=== PATIENT | male | born 1980 | race Caucasian/White ===

== ENCOUNTER 2022-10-24 12:58 | Inpatient (IN) ==
--- NOTE | 2022-10-24 13:24 | Emergency Department Note ---
Impression & Plan Depression with suicidal ideation ED Provider Note NAME: EMMANUEL PARIKH AGE: 42 SEX: M : 1980 ARRIVES VIA: Walk-In INFORMANT: Patient, ED PROVIDER(S): Junior Woods DO CHIEF COMPLAINT: Mental health evaluation HPI: The patient is a 42-year-old male who presented to the emergency department for an evaluation of mental health issues. The patient has a history of mental health problems in the past. The patient started noticing problems with depression as well as suicidal ideation over the last 2 weeks. He had planned to either cut his wrists or hang himself. The patient had a similar episode sometime ago. He was admitted to the [facility] in [place] approximately 9 months ago. He states has been compliant with his outpatient medications although he feels they are not helping him. He denies having any recent alcohol or drug use. He denies having any trauma. He denies having any fever or headache. ROS: See above HPI for pertinent positives & negatives. A total of 10 systems reviewed and were otherwise negative. PAST MEDICAL HISTORY: See Below PAST SURGICAL HISTORY: See Below FAMILY HISTORY: See Below SOCIAL HISTORY: See Below HOME MEDICATIONS: See Below ALLERGIES: See Below VITALS: See Below PHYSICAL EXAMINATION: GENERAL: Patient is awake alert in no acute distress patient is resting comfortably and showing no signs of anxiety EYES: The conjunctivae are clear. The pupils are round and reactive. EARS, NOSE, MOUTH AND THROAT: The nose is without any evidence of any deformity. Mucous membranes are moist. Tongue is midline. NECK: The neck is nontender and supple. RESPIRATORY: Normal respiratory effort is noted there is no evidence of wheezing rhonchi or rales CARDIOVASCULAR: Regular rate and rhythm noted there no murmurs rubs or gallops normal S1 normal S2. GASTROINTESTINAL: The abdomen is soft. Abdomen is nontender. MUSCULOSKELETAL/EXTREMITIES: There is no evidence of gross deformity full range of motion is noted in the hips and shoulders. SKIN: There is no obvious evidence of any rash. There are no petechiae, pallor or cyanosis noted. NEUROLOGIC: Patient is awake alert and oriented x3. Strength was symmetric. Gait was steady. PSYCH: The patient makes good eye contact mostly evaluation. His affect is flat. The patient is currently admitting to suicidal ideation with a plan to hang himself. MEDICAL DECISION MAKING: The patient is a 42-year-old male who presented to the emergency department for mental health evaluation. The patient has a history of schizophrenia. He also has a history of bipolar. The patient has been compliant with his outpatient medications although he does not feel his medications are helping him. He presented to the emergency department for an evaluation. The patient was medically cleared in the emergency department. He was then evaluated by the mental health pillowcase maker. He was felt to be a good candidate for inpatient management. A referral was made to [facility]. The patient was ultimately excepted to [facility] for inpatient management. 201 was signed by myself. Triage Nursing notes reviewed. Prior medical records reviewed Vital Signs: reviewed and remarkable for no significant abnormalities Differential diagnosis: Mood disorder, infection, hypoglycemia, electrolyte abnormalities, cardiac sources, intracerebral event, toxicologic, trauma, neurologic, as well as other pathologies. ER treatment provided: See below Diagnostics interpreted by me: ECG: none Cardiac Monitoring: An order was placed for continuous cardiac monitoring. The monitor shows a rate of with rhythm. Laboratory studies: As stated above and show below. Imaging studies: See below. Radiographic imaging was reviewed by myself Consultation(s): The case was discussed with the emergency department mental health pillowcase maker. Past Med/Surg History Medical History Anxiety Bipolar 1 disorder History of anesthesia reaction "heightened anesthesia awareness" Hx of deep venous thrombosis 2021 b/l calf - compression sleeve used , vague on specifics Mood disorder PTSD (post-traumatic stress disorder) Schizophrenia Seizure-like activity pt denies any seizure like activuty or hx of seizures Surgical History History of dental surgery dental implants History of uvulopalatopharyngoplasty Hx of inguinal hernia repair Hx of wisdom tooth extraction Family History Other Family history non-contributory Social History Smoking Status: Current every day smoker Tobacco Type: Cigarettes Cigarettes Per Day: 10-2- advised; Second Hand Exposure: No; Do You Dip or Chew Tobacco: Yes (advised); Hx Alcohol Use: No Hx Substance Use: Yes (medical marijuana- advised) Last Used Substance Other:: 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 Preferred Language: Panamanian Communication Ability: Effective Plan Coordinator Required: No Beliefs That Will Affect Care: None marital status: Single Current Living Situation: Other Current Living Situation Comment: roommate current occupational status: disabled Feels Safe at Home: Yes Gender Identity: Male Assistive Devices: Contacts and Glasses Allergies Allergies Allergy/AdvReac Type Severity Reaction Status Date / Time zolpidem [From Ambien] AdvReac Severe Unconscious Verified 08/26/22 01:03 nickel AdvReac Intermediate makes skin Verified 08/26/22 01:03 purple/blue Home Meds Home Medications Medication Instructions Recorded Confirmed benztropine 0.5 mg tablet 0.5 mg PO BID 03/14/22 10/24/22 haloperidol 2 mg tablet 4 mg PO HS 03/14/22 10/24/22 hydroxyzine HCl 50 mg tablet 50 mg PO Q6H PRN Anxiety 03/14/22 10/24/22 melatonin 3 mg tablet 3 mg PO HS PRN Insomnia 03/14/22 10/24/22 sildenafil 100 mg tablet (Viagra) 100 mg PO DAILY PRN Sexual Activity 03/14/22 10/24/22 Cbd 1 dose PO DIRECTED PRN PRN per 10/24/22 10/24/22 pt atorvastatin 10 mg tablet 10 mg PO DAILY 10/24/22 10/24/22 Results & Data (ED) Vital Signs Vital Signs - 24 hr 10/24/22 13:01 Temperature 36.6 C Temperature Source Temporal Artery Scan Pulse Rate 110 H Respiratory Rate 20 Respiratory Effort / Characteristics Non-Labored Respiratory Depth Normal Blood Pressure 113/80 Blood Pressure Mean 91 Pulse Oximetry 97 Oxygen Delivery Method Room Air Sepsis Recent Fever Within 48 Hours No Sepsis New/Unexplained Change in Mental Status N/A Sepsis Action Taken by Nursing No Action Required Home Medications Current Medication List: was personally reviewed by me Laboratory Data Attestation: I reviewed the patient's lab results. 10/24/22 13:20 10/24/22 13:20 Lab Results 10/24/22 10/24/22 10/24/22 Range/Units 13:20 13:20 13:20 WBC 6.59 (4.8-10.8) K/ul RBC 5.40 (4.70-6.10) M/uL Hgb 16.5 (14.0-18.0) g/dl Hct 49.3 (42.0-52.0) % MCV 91.3 (80.0-100.0) fL MCH 30.6 (25.0-34.0) pg MCHC 33.5 (32.0-36.0) g/dL RDW Std Deviation 41.4 (36.4-46.3) fL RDW Coeff of Hansa 12.4 (11.5-14.5) % Plt Count 292 (130-400) K/uL MPV 8.7 L (9.4-12.4) fL Immature Gran % (Auto) 0.2 % Neut % (Auto) 71.4 % Lymph % (Auto) 19.0 % Sutter % (Auto) 8.0 % Eos % (Auto) 1.1 % Baso % (Auto) 0.3 % Neut # (Auto) 4.71 (1.40-6.50) K/uL Lymph # (Auto) 1.25 (1.2-3.4) K/uL Sutter # (Auto) 0.53 (0.11-0.59) K/uL Eos # (Auto) 0.07 (0-0.50) K/uL Baso # (Auto) 0.02 (0-0.2) K/uL Immature Gran # (Auto) 0.01 (0.01-0.20) K/uL Sodium 136 (136-145) mmol/L Potassium 3.9 (3.5-5.1) mmol/L Chloride 100 (98-107) mmol/L Carbon Dioxide 29 (21-32) mmol/L Anion Gap 7 (3-11) BUN 15 (6-23) mg/dl Creatinine 0.94 (0.6-1.4) mg/dl Est Cr Clr Drug Dosing 94.7 ml/min Est GFR ( Amer) 114.6 ml/min Est GFR (Non-Af Amer) 98.9 ml/min BUN/Creatinine Ratio 16.0 (10-20) Glucose 121 H (70-99(Fasting)) mg/dl Calcium 9.8 (8.6-10.3) mg/dl Total Bilirubin 0.6 (0.2-1.0) mg/dl AST 23 (13-39) U/L ALT 29 (7-52) U/L Alkaline Phosphatase 85 (34-104) U/L Total Protein 7.6 (6.0-8.3) gm/dl Albumin 5.0 (3.4-5.0) gm/dl Globulin 2.6 (2.5-4.0) gm/dl Albumin/Globulin Ratio 1.9 (0.9-2) TSH 1.383 (0.300-4.500) uIu/ml Urine Color Urine Appearance (Clear) Urine pH (4.5-7.5) Ur Specific [place] (1.000-1.030) Urine Protein (Negative) Urine Glucose (UA) (Negative) Urine Ketones (Negative) Urine Blood (Negative) Urine Nitrite (Negative) Urine Bilirubin (Negative) Urine Urobilinogen (Negative) Ur Leukocyte Esterase (Negative) Urine WBC (Auto) (0-5) /hpf Urine RBC (Auto) (0-4) /hpf U Hyaline Cast (Auto) (0-5) /lpf U Epithel Cells (Auto) (0-5) /lpf Urine Bacteria (Auto) (Negative) Salicylates (3.0-30) mg/dl Urine Opiates Screen (Neg) Ur Methadone, Qual (Neg) Acetaminophen (10-30) ug/ml Urine Barbiturates (Neg) Ur Phencyclidine (PCP) (Neg) U Amphetamin/Meth Scrn (Neg) MDMA (Ecstasy) Screen (Neg) U Benzodiazepines Scrn (Neg) Ur Cocaine Metabolite (Neg) U Marijuana (THC) Screen (Neg) Ethyl Alcohol mg/dL (<10.0) mg/dl SARS-CoV-2, RNA, NAAT 10/24/22 10/24/22 10/24/22 Range/Units 13:20 13:20 13:20 WBC (4.8-10.8) K/ul RBC (4.70-6.10) M/uL Hgb (14.0-18.0) g/dl Hct (42.0-52.0) % MCV (80.0-100.0) fL MCH (25.0-34.0) pg MCHC (32.0-36.0) g/dL RDW Std Deviation (36.4-46.3) fL RDW Coeff of Hansa (11.5-14.5) % Plt Count (130-400) K/uL MPV (9.4-12.4) fL Immature Gran % (Auto) % Neut % (Auto) % Lymph % (Auto) % Sutter % (Auto) % Eos % (Auto) % Baso % (Auto) % Neut # (Auto) (1.40-6.50) K/uL Lymph # (Auto) (1.2-3.4) K/uL Sutter # (Auto) (0.11-0.59) K/uL Eos # (Auto) (0-0.50) K/uL Baso # (Auto) (0-0.2) K/uL Immature Gran # (Auto) (0.01-0.20) K/uL Sodium (136-145) mmol/L Potassium (3.5-5.1) mmol/L Chloride (98-107) mmol/L Carbon Dioxide (21-32) mmol/L Anion Gap (3-11) BUN (6-23) mg/dl Creatinine (0.6-1.4) mg/dl Est Cr Clr Drug Dosing ml/min Est GFR ( Amer) ml/min Est GFR (Non-Af Amer) ml/min BUN/Creatinine Ratio (10-20) Glucose (70-99(Fasting)) mg/dl Calcium (8.6-10.3) mg/dl Total Bilirubin (0.2-1.0) mg/dl AST (13-39) U/L ALT (7-52) U/L Alkaline Phosphatase (34-104) U/L Total Protein (6.0-8.3) gm/dl Albumin (3.4-5.0) gm/dl Globulin (2.5-4.0) gm/dl Albumin/Globulin Ratio (0.9-2) TSH (0.300-4.500) uIu/ml Urine Color Urine Appearance (Clear) Urine pH (4.5-7.5) Ur Specific [place] (1.000-1.030) Urine Protein (Negative) Urine Glucose (UA) (Negative) Urine Ketones (Negative) Urine Blood (Negative) Urine Nitrite (Negative) Urine Bilirubin (Negative) Urine Urobilinogen (Negative) Ur Leukocyte Esterase (Negative) Urine WBC (Auto) (0-5) /hpf Urine RBC (Auto) (0-4) /hpf U Hyaline Cast (Auto) (0-5) /lpf U Epithel Cells (Auto) (0-5) /lpf Urine Bacteria (Auto) (Negative) Salicylates < 3.0 L (3.0-30) mg/dl Urine Opiates Screen (Neg) Ur Methadone, Qual (Neg) Acetaminophen < 3 L (10-30) ug/ml Urine Barbiturates (Neg) Ur Phencyclidine (PCP) (Neg) U Amphetamin/Meth Scrn (Neg) MDMA (Ecstasy) Screen (Neg) U Benzodiazepines Scrn (Neg) Ur Cocaine Metabolite (Neg) U Marijuana (THC) Screen (Neg) Ethyl Alcohol mg/dL < 10.0 (<10.0) mg/dl SARS-CoV-2, RNA, NAAT Cancelled 10/24/22 10/24/22 10/24/22 Range/Units 15:22 Unknown Unknown WBC (4.8-10.8) K/ul RBC (4.70-6.10) M/uL Hgb (14.0-18.0) g/dl Hct (42.0-52.0) % MCV (80.0-100.0) fL MCH (25.0-34.0) pg MCHC (32.0-36.0) g/dL RDW Std Deviation (36.4-46.3) fL RDW Coeff of Hansa (11.5-14.5) % Plt Count (130-400) K/uL MPV (9.4-12.4) fL Immature Gran % (Auto) % Neut % (Auto) % Lymph % (Auto) % Sutter % (Auto) % Eos % (Auto) % Baso % (Auto) % Neut # (Auto) (1.40-6.50) K/uL Lymph # (Auto) (1.2-3.4) K/uL Sutter # (Auto) (0.11-0.59) K/uL Eos # (Auto) (0-0.50) K/uL Baso # (Auto) (0-0.2) K/uL Immature Gran # (Auto) (0.01-0.20) K/uL Sodium (136-145) mmol/L Potassium (3.5-5.1) mmol/L Chloride (98-107) mmol/L Carbon Dioxide (21-32) mmol/L Anion Gap (3-11) BUN (6-23) mg/dl Creatinine (0.6-1.4) mg/dl Est Cr Clr Drug Dosing ml/min Est GFR ( Amer) ml/min Est GFR (Non-Af Amer) ml/min BUN/Creatinine Ratio (10-20) Glucose (70-99(Fasting)) mg/dl Calcium (8.6-10.3) mg/dl Total Bilirubin (0.2-1.0) mg/dl AST (13-39) U/L ALT (7-52) U/L Alkaline Phosphatase (34-104) U/L Total Protein (6.0-8.3) gm/dl Albumin (3.4-5.0) gm/dl Globulin (2.5-4.0) gm/dl Albumin/Globulin Ratio (0.9-2) TSH (0.300-4.500) uIu/ml Urine Color Yellow Urine Appearance Clear (Clear) Urine pH 6.0 (4.5-7.5) Ur Specific [place] 1.018 (1.000-1.030) Urine Protein Negative (Negative) Urine Glucose (UA) Negative (Negative) Urine Ketones Trace H (Negative) Urine Blood Negative (Negative) Urine Nitrite Negative (Negative) Urine Bilirubin Negative (Negative) Urine Urobilinogen Negative (Negative) Ur Leukocyte Esterase Trace H (Negative) Urine WBC (Auto) 1-5 (0-5) /hpf Urine RBC (Auto) 0-4 (0-4) /hpf U Hyaline Cast (Auto) 1-5 (0-5) /lpf U Epithel Cells (Auto) 0-5 (0-5) /lpf Urine Bacteria (Auto) Negative (Negative) Salicylates (3.0-30) mg/dl Urine Opiates Screen Neg (Neg) Ur Methadone, Qual Neg (Neg) Acetaminophen (10-30) ug/ml Urine Barbiturates Neg (Neg) Ur Phencyclidine (PCP) Neg (Neg) U Amphetamin/Meth Scrn Neg (Neg) MDMA (Ecstasy) Screen Neg (Neg) U Benzodiazepines Scrn Neg (Neg) Ur Cocaine Metabolite Neg (Neg) U Marijuana (THC) Screen Pos H (Neg) Ethyl Alcohol mg/dL (<10.0) mg/dl SARS-CoV-2, RNA, NAAT NEGATIVE Discharge Plan Visit Data Chief Complaint: Mental Health Evaluation Stated Complaint: MENTAL EVAL ED Provider: Junior Woods Discharge Problem: Depression with suicidal ideation Patient Disposition: Transfer Behavioral Health Fac Forms Stand Alone Forms: My [facility], Suicide Prevention Resources Prescriptions Prescriptions: No Action benztropine 0.5 mg Tablet 0.5 mg PO BID hydroxyzine HCl 50 mg Tablet 50 mg PO Q6H PRN (Reason: Anxiety) melatonin 3 mg Tablet 3 mg PO HS PRN (Reason: Insomnia) sildenafil [Viagra] 100 mg Tablet 100 mg PO DAILY PRN (Reason: Sexual Activity) Rx Instructions: administer 30 minutes to 4 hours before activity haloperidol 2 mg Tablet 4 mg PO HS atorvastatin 10 mg Tablet 10 mg PO DAILY Cbd 1 dose PO DIRECTED PRN (Reason: PRN per pt) Referrals Referrals: Yajaira Ryan [email or web address] [Primary Care Provider] -
[2022-10-24 13:39] LABS: Appearance Urine Clear (Clear); Bacteria Urine Automated Negative (Negative); Bilirubin Urine Negative (Negative); Blood Urine Negative (Negative); Color Urine Yellow; Epithelial Cell Urine Auto 0-5 /lpf (0-5); Glucose Urine UA Negative (Negative); Ketones Urine Trace (Negative); Leukocyte Esterase Urine Trace (Negative); Nitrite Urine Negative (Negative); Protein Urine Negative (Negative); RBC Urine Automated 0-4 /hpf (0-4); Specific Gravity Urine 1.018 (1.000-1.030); Urobilinogen Urine Negative (Negative)
[2022-10-24 13:46] LABS: Basophils # (auto) 0.02 K/uL (0-0.2); Basophils % (auto) 0.3 %; Eosinophils # (auto) 0.07 K/uL (0-0.50); Eosinophils % (auto) 1.1 %; Hematocrit (blood only) 49.3 % (42.0-52.0); Hemoglobin 16.5 g/dl (14.0-18.0); Immature Granulocytes # (auto) 0.01 K/uL (0.01-0.20); Immature Granulocytes % (auto) 0.2 %; Lymphocytes # (auto) 1.25 K/uL (1.2-3.4); Mean Corpuscular Hemoglobin 30.6 pg (25.0-34.0); Mean Corpuscular Hgb Conc 33.5 g/dL (32.0-36.0); Mean Corpuscular Volume 91.3 fL (80.0-100.0); Mean Platelet Volume 8.7 fL (9.4-12.4); Monocytes # (auto) 0.53 K/uL (0.11-0.59); Neutrophils # (auto) 4.71 K/uL (1.40-6.50); Neutrophils % (auto) 71.4 %; Platelet Count 292 K/uL (130-400); RDW Coefficient of Variation 12.4 % (11.5-14.5); RDW Standard Deviation 41.4 fL (36.4-46.3); White Blood Count 6.59 K/ul (4.8-10.8)
[2022-10-24 13:56] LABS: Acetaminophen < 3 ug/ml (10-30); Salicylate < 3.0 mg/dl (3.0-30)
[2022-10-24 13:59] LABS: Albumin Globulin Ratio 1.9 (0.9-2); Bilirubin,Total 0.6 mg/dl (0.2-1.0); Calcium 9.8 mg/dl (8.6-10.3); Creatinine Clr Calc Pharmacy 94.7 ml/min; Est GFR (African American) 114.6 ml/min; Est GFR (Non-African American) 98.9 ml/min; Globulin 2.6 gm/dl (2.5-4.0); Potassium 3.9 mmol/L (3.5-5.1); Total Protein 7.6 gm/dl (6.0-8.3)
[2022-10-24 14:22] LABS: Amphetamines+Metham, Urine Neg (Neg); Barbiturates, Urine Neg (Neg); Benzodiazepine, Urine Neg (Neg); Cocaine, Urine Neg (Neg); MDMA (Ecstacy), Urine Neg (Neg); Methadone, Urine Neg (Neg); Opiate, Urine Neg (Neg); Phencyclidine, Urine Neg (Neg)
[2022-10-24] MEDS ORDERED: ALUMINUM/MAGNESIUM SUSP 30 ML UDC PO PRN (16:38)
[2022-10-24] MEDS ORDERED: BISMUTH SUBSALICYLATE LIQD 236 ML PO PRN (16:38)
[2022-10-24] MEDS ORDERED: ACETAMINOPHEN 325 MG TAB PO PRN (16:38)
[2022-10-24] MEDS ORDERED: SODIUM CHLORIDE 0.65% NA SOLN 45 ML (OCEAN) PRN (16:38)
[2022-10-24] MEDS ORDERED: NICOTINE POLACRILEX 2 MG GUM MT PRN (16:38)
[2022-10-24] MEDS ORDERED: MAGNESIUM HYDROXIDE SUSP 30 ML UDC PO PRN (16:38)
[2022-10-24] MEDS ORDERED: hydrOXYzine HCl 25 MG TAB PO PRN ×2 (16:38)
[2022-10-24] MEDS ORDERED: haloperidoL 1 MG TAB PO SCH (21:00)
[2022-10-24] MEDS ORDERED: traZODone HCL 100 MG TAB PO SCH (21:00)
[2022-10-25] MEDS: NICOTINE 21 MG/24 HR TDSY TD SCH ×2 (08:44→08:47)
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
[2022-10-25] MEDS ORDERED: traZODone HCL 100 MG TAB PO PRN (12:51)
[2022-10-25] MEDS: BENZTROPINE MESYLATE 0.5 MG TAB PO SCH ×2 (13:06→21:19)
[2022-10-25] MEDS: buPROPion SR 100 MG TABCR PO SCH (13:06)
[2022-10-25] MEDS: ATORVASTATIN 10 MG TAB PO SCH (13:06)
[2022-10-25] MEDS ORDERED: haloperidoL 1 MG TAB PO SCH (22:00)
[2022-10-26] MEDS: ATORVASTATIN 10 MG TAB PO SCH (08:47)
[2022-10-26] MEDS: buPROPion SR 100 MG TABCR PO SCH (08:48)
[2022-10-26] MEDS: NICOTINE 21 MG/24 HR TDSY TD SCH (08:48)
[2022-10-26] MEDS: BENZTROPINE MESYLATE 0.5 MG TAB PO SCH (08:48)
--- NOTE | 2022-10-26 13:02 | Psychiatric Progress Note ---
Date of Service October 26, 2022 Impression / Recommendations Impression 42 yo male with a history of recurrent depression (including psychotic disorganization/paranoia) and manic episodes presents abstaining from cocaine but ongoing MJ, now depressed with SI. [facility], not officially diagnosed with ADHD but worried about his focus (records not available and 10/26/22 also a holiday). 10/26/2022: ongoing severe depression (1) Bipolar 1 disorder: (2) Cannabis abuse: Plan 10/26/22: continue Haldol taper. Titrate Wellbutrin to 150 mg XL. If requires trazodone will try 50 mg in case adding to dizzy. Encourage fluids/pedialyte. Repeat vitals with orthostatics prn. 10/25/22: The patient was admitted to [facility] ([facility] mental health unit) on q15 min checks (behavioral with suicide precautions) for safety. The patient will participate in group, recreational, and milieu therapies and will be offered additional individual and family sessions as clinically appropriate. >5 min spent offering brief intervention around substance abuse given hx of cocaine induced fermin and recent increase in medical marijuana. He is considering sobriety. Denies risk of EToh withdrawal and reconfirmed no hx of seizure/issues with Wellbutrin (confusing as did have EEG 06/01 which was negative). Will start Wellbutrin SR 100 mg daily now. Taper Haldol in preparation for a full trial of Latuda. Suicide Risk Level Suicide Risk Level: High-Moderate (q15 min suicide checks) Risk Factors Assessment Male: Yes : Yes Do You Have Access To A Gun?: Yes (Roommate has gun but pt doesn't know where it is) Mental Health Diagnoses: Yes Substance Use Disorders: Yes Previous Attempt: Yes Previous Psychiatric Hospitalization: Yes Protective Factors Assessment : No Employed: No Supportive Family: Yes Interval History Identifying Information EMMANUEL PARIKH is a 42-year-old M who currently lives in [place], has a history of service and a bipolar dx, and was admitted on 10/24/22 16:38 on a 201 voluntary commitment for SI with plan. Chief Complaint "I just feel so disconnected/empty." Review of Systems Sleep Information Total Hours of Sleep: 6.5 Meal Information Percent Meal Consumed - Breakfast: 50 Percent Meal Consumed - Lunch: 100 Percent Meal Consumed - Dinner: 100 Subjective Subjective Patient was seen & assessed and interval progress reviewed with treatment team. Patient continues to have all or nothing thinking and should statements. He is "surprised to be alive" given his manic behavior last year. Continues to speak of cocaine fondly, "didn't make me high" yet endorsed multiple manic symptoms. Reviewed ongoing lightheadedness, may be related to trazodone but wasn't an issue when took at home. Not drinking well. Physical Exam Psychiatric Orientation: alert and oriented x 3 Apperance: appropriately dressed and appropriately groomed Eye Contact: good eye contact Motor Behavior: no abnormal motor movements Speech: normal rate/rhythm/volume of speech Affect: + depressed affect Mood: + depressed mood Thought Process: goal directed thought process Thought Content: reality based without delusions Suicidal Thoughts: denies suicidal intent (on unit); + reports suicidal thoughts and + reports suicidal plan Homicidal Thoughts: denies homicidal thoughts Hallucinations: no auditory hallucinations and no visual hallucinations Cognition: attention grossly intact and language grossly intact Estimated Intelligence: consistent with education level Insight: + limited insight Judgment: + limited judgement Vital Signs (Past 24 Hours) Last Vital Signs Temp 36.7 C 10/26/22 06:40 Pulse 85 10/26/22 06:41 Resp 16 10/26/22 06:40 BP 85/54 L 10/26/22 06:41 Pulse Ox 98 10/24/22 17:37 O2 Del Method Room Air 10/24/22 17:37 Results & Data ([facility]) Current Inpatient Medications Current Inpatient Medications: Current Inpatient Medications Acetaminophen (Acetaminophen 325 Mg Tab) 650 mg PO Q4H PRN PRN Reason: Headache or Minor Fever Stop: 11/23/22 16:37 Al Hydrox/Mg Hydrox/Simethicone (Aluminum/Magnesium Susp 30 Ml Udc) 30 ml PO Q4H PRN PRN Reason: GI Upset Stop: 11/23/22 16:37 Atorvastatin Calcium (Atorvastatin 10 Mg Tab) 10 mg PO DAILY MONE Stop: 11/24/22 12:29 Last Admin: 10/26/22 08:47 Dose: 10 mg Bismuth Subsalicylate (Bismuth Subsalicylate Liqd 236 Ml) 15 ml PO PRN PRN PRN Reason: Loose Stool Stop: 11/23/22 16:37 Bupropion HCl (Bupropion Xl 150 Mg Tabcr) 150 mg PO QAM [facility] Stop: 11/26/22 08:59 Haloperidol (Haloperidol 1 Mg Tab) 1 mg PO HS [facility] Stop: 11/25/22 21:59 Hydroxyzine HCl (Hydroxyzine Hcl 25 Mg Tab) 25 mg PO Q4H PRN PRN Reason: Anxiety Stop: 11/23/22 16:37 Magnesium Hydroxide (Magnesium Hydroxide Susp 30 Ml Udc) 30 ml PO DAILY PRN PRN Reason: Constipation Stop: 11/23/22 16:37 Miscellaneous (Remove Nicoderm Patch) 1 each N/A DAILY@0859 [facility] Stop: 11/24/22 08:58 Last Admin: 10/26/22 08:47 Dose: Not Given Nicotine (Nicotine 21 Mg/24 Hr Tdsy) 21 mg TD QAM [facility] Stop: 11/24/22 08:59 Last Admin: 10/26/22 08:48 Dose: Not Given Nicotine Polacrilex (Nicotine Polacrilex 2 Mg Gum) 2 piece MT PRN PRN PRN Reason: Nicotine Withdrawal Stop: 11/23/22 16:37 Sodium Chloride (Sodium Chloride 0.65% Na Soln 45 Ml ([place])) 1 - 2 sprays NA PRN PRN PRN Reason: Nasal Dryness/Congestion Stop: 11/23/22 16:37 Trazodone HCl (Trazodone Hcl 50 Mg Tab) 50 mg PO HS PRN PRN Reason: Insomnia Stop: 11/23/22 20:59
[2022-10-26] MEDS ORDERED: haloperidoL 1 MG TAB PO SCH (22:00)
[2022-10-26] MEDS: traZODone HCL 50 MG TAB PO PRN (23:33)
[2022-10-27] MEDS: buPROPion XL 150 MG TABCR PO SCH (08:37)
[2022-10-27] MEDS: ATORVASTATIN 10 MG TAB PO SCH (08:38)
[2022-10-27] MEDS: NICOTINE 21 MG/24 HR TDSY TD SCH (08:41)
--- NOTE | 2022-10-27 12:26 | Psychiatric Progress Note ---
Date of Service October 27, 2022 Impression / Recommendations Impression 42 yo male with a history of recurrent depression (including psychotic disorganization/paranoia) and manic episodes presents abstaining from cocaine but ongoing MJ, now depressed with SI. Reports [facility], not officially diagnosed with ADHD but worried about his focus (records not available and 10/26/22 also a holiday). 10/27/2022: ongoing severe depression, discussed community resources/additional options for refractory depression (ECT, TMS, ketamine), etc. [facility]. (1) Bipolar 1 disorder: (2) Cannabis abuse: Plan 10/27/22: no abnormal motor movements, d/c Haldol in favor of Latuda 40 mg with evening meals. 10/26/22: continue Haldol taper. Titrate Wellbutrin to 150 mg XL. If requires trazodone will try 50 mg in case adding to dizzy. Encourage fluids/pedialyte. Repeat vitals with orthostatics prn. 10/25/22: The patient was admitted to the [facility] ([facility]) on q15 min checks (behavioral with suicide precautions) for safety. The patient will participate in group, recreational, and milieu therapies and will be offered additional individual and family sessions as clinically appropriate. >5 min spent offering brief intervention around substance abuse given hx of cocaine induced fermin and recent increase in medical marijuana. He is considering sobriety. Denies risk of EToh withdrawal and reconfirmed no hx of seizure/issues with Wellbutrin (confusing as did have EEG 06/01 which was negative). Will start Wellbutrin SR 100 mg daily now. Taper Haldol in preparation for a full trial of Latuda. Suicide Risk Level Suicide Risk Level: High-Moderate (q15 min suicide checks) Risk Factors Assessment Male: Yes : Yes Do You Have Access To A Gun?: Yes (Roommate has gun but pt doesn't know where it is) Mental Health Diagnoses: Yes Substance Use Disorders: Yes Previous Attempt: Yes Previous Psychiatric Hospitalization: Yes Protective Factors Assessment : No Employed: No Supportive Family: Yes Interval History Identifying Information EMMANUEL PARIKH is a 42-year-old M who currently lives in [place], has a history of service and a bipolar dx, and was admitted on 10/24/22 16:38 on a 201 voluntary commitment for SI with plan. Chief Complaint "I don't know how people live like this. I wish we were a country that allowed an out." Review of Systems Sleep Information Total Hours of Sleep: 7.5 Meal Information Percent Meal Consumed - Breakfast: 80 Percent Meal Consumed - Lunch: 90 Percent Meal Consumed - Dinner: 100 Subjective Subjective Patient was seen & assessed and interval progress reviewed with nursing and social work. Was a bit more visible on the unit in pm but makes off topic comments to peers at times. Still reports low energy, no dizziness at baseline. Still amotivation toward groups/meals. Encouraging fluids. Physical Exam Psychiatric Orientation: alert and oriented x 3 Apperance: appropriately dressed and appropriately groomed Eye Contact: good eye contact Motor Behavior: no abnormal motor movements Speech: normal rate/rhythm/volume of speech Affect: + depressed affect Mood: + depressed mood Thought Process: goal directed thought process Thought Content: reality based without delusions Suicidal Thoughts: denies suicidal intent (on unit); + reports suicidal thoughts and + reports suicidal plan Homicidal Thoughts: denies homicidal thoughts Hallucinations: no auditory hallucinations and no visual hallucinations Cognition: attention grossly intact and language grossly intact Estimated Intelligence: consistent with education level Insight: + limited insight Judgment: + limited judgement Vital Signs (Past 24 Hours) Last Vital Signs Temp 36.9 C 10/27/22 06:39 Pulse 82 10/27/22 06:39 Resp 16 10/27/22 06:39 BP 96/61 L 10/27/22 06:39 Pulse Ox 98 10/24/22 17:37 O2 Del Method Room Air 10/24/22 17:37 Results & Data ([facility]) Current Inpatient Medications Current Inpatient Medications: Current Inpatient Medications Acetaminophen (Acetaminophen 325 Mg Tab) 650 mg PO Q4H PRN PRN Reason: Headache or Minor Fever Stop: 11/23/22 16:37 Al Hydrox/Mg Hydrox/Simethicone (Aluminum/Magnesium Susp 30 Ml Udc) 30 ml PO Q4H PRN PRN Reason: GI Upset Stop: 11/23/22 16:37 Atorvastatin Calcium (Atorvastatin 10 Mg Tab) 10 mg PO DAILY MONE Stop: 11/24/22 12:29 Last Admin: 10/27/22 08:38 Dose: 10 mg Bismuth Subsalicylate (Bismuth Subsalicylate Liqd 236 Ml) 15 ml PO PRN PRN PRN Reason: Loose Stool Stop: 11/23/22 16:37 Bupropion HCl (Bupropion Xl 150 Mg Tabcr) 150 mg PO QAM [facility] Stop: 11/26/22 08:59 Last Admin: 10/27/22 08:37 Dose: 150 mg Hydroxyzine HCl (Hydroxyzine Hcl 25 Mg Tab) 25 mg PO Q4H PRN PRN Reason: Anxiety Stop: 11/23/22 16:37 Lurasidone HCl (Lurasidone Hcl 40 Mg Tab) 40 mg PO DAILYBD [facility] Stop: 11/26/22 17:14 Magnesium Hydroxide (Magnesium Hydroxide Susp 30 Ml Udc) 30 ml PO DAILY PRN PRN Reason: Constipation Stop: 11/23/22 16:37 Miscellaneous (Remove Nicoderm Patch) 1 each N/A DAILY@0859 [facility] Stop: 11/24/22 08:58 Last Admin: 10/27/22 08:40 Dose: Not Given Nicotine (Nicotine 21 Mg/24 Hr Tdsy) 21 mg TD QAM [facility] Stop: 11/24/22 08:59 Last Admin: 10/27/22 08:41 Dose: Not Given Nicotine Polacrilex (Nicotine Polacrilex 2 Mg Gum) 2 piece MT PRN PRN PRN Reason: Nicotine Withdrawal Stop: 11/23/22 16:37 Sodium Chloride (Sodium Chloride 0.65% Na Soln 45 Ml ([place])) 1 - 2 sprays NA PRN PRN PRN Reason: Nasal Dryness/Congestion Stop: 11/23/22 16:37 Trazodone HCl (Trazodone Hcl 50 Mg Tab) 50 mg PO HS PRN PRN Reason: Insomnia Stop: 11/23/22 20:59 Last Admin: 10/26/22 23:33 Dose: 50 mg
[2022-10-27] MEDS: LURASIDONE HCL 40 MG TAB PO SCH (17:25)
[2022-10-28] MEDS: traZODone HCL 50 MG TAB PO PRN (01:29)
[2022-10-28] MEDS: NICOTINE 21 MG/24 HR TDSY TD SCH (09:13)
[2022-10-28] MEDS: buPROPion XL 150 MG TABCR PO SCH (09:14)
[2022-10-28] MEDS: ATORVASTATIN 10 MG TAB PO SCH (09:14)
[2022-10-28 10:53] LABS: Marijuana Quant, GCMS Urine 2232 ng/mL (<5)
[2022-10-28 13:07] LABS: Influenza A virus by PCR Negative (Neg); Influenza B virus by PCR Negative (Neg); RSV by PCR Negative (Neg); SARS CoV2 RNA(COVID-19) Ceph NEGATIVE (Negative)
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
[2022-10-28] MEDS: LURASIDONE HCL 40 MG TAB PO SCH (16:47)
== END 2022-10-28 16:53 | DRG 885 ==
LOC: ED 12:58 → 3S 16:38